=== PATIENT | male | born 1985 | race Hispanic/Latino ===

== ENCOUNTER 2019-05-19 18:34 | Emergency (ER) | payer OTHER ==
--- NOTE | 2019-05-19 18:51 | Event Note ---
ED Screening Note ED Screening Note: Pt presents for lightheaded and fever yesterday having pain and edema, erythema in the RLE (+) SOB no cough +nausea/vomiting no abd pain no diarrhea (+) CP feels like a "muscle cramp" PMHx DVT 2009, IVC filter in place 2009 sleep apnea, anxiety no cardiac hx normal stress test in Dec 2018 pt is currently on phentarmine non smoker occ drinker no drug use This initial assessment/diagnostic orders/clinical plan/treatment(s) is/are subject to change based on patients health status, clinical progression and re- assessment by fellow clinical providers in the ED. Further treatment and workup at subsequent clinical providers discretion. Patient/guardian urged not to elope from the ED as their condition may be serious if not clinically assessed and managed. Initial orders include: CP protocol
--- NOTE | 2019-05-19 19:26 | XRay Report ---
CHEST PA AND LATERAL VIEWS INDICATION: CP. COMPARISON: None. FINDINGS: Support devices: None. Heart: Within normal limits. Lungs/Pleura: There appears to be mild peribronchial cuffing could be seen in the setting of lower ai rways disease. No consolidation, pleural effusion, or pneumothorax. IMPRESSION: 1. Mild peribronchial cuffing which can be seen in the setting of lower airways disease. Signer Name: Darrion Burdick MD Signed: 05/19/2019 7:21 PM Workstation Name: [id number]
[2019-05-19 19:49] LABS: Basophils # (Auto) 0.1 K/mm3 (0.0-0.1); Basophils % (Auto) 0.5 % (0.0-1.8); Hemoglobin 15.2 gm/dl (11.8-15.2); Lymphocytes # (Auto) 1.1 K/mm3 (1.2-5.4); Mean Corpuscular HGB Conc 35 % (32-34); Mean Corpuscular Volume 85 fl (84-94); Monocytes # (Auto) 1.1 K/mm3 (0.0-0.8); Monocytes % (Auto) 8.2 % (0.0-7.3); Platelet Count 232 K/mm3 (140-440); Red Blood Count 5.17 M/mm3 (3.65-5.03); Red Cell Distribution Width 14.2 % (13.2-15.2)
[2019-05-19 19:56] LABS: INR 1.11 (0.87-1.13)
[2019-05-19 19:57] LABS: Partial Thromboplastin Time 26.7 Sec. (24.2-36.6)
[2019-05-19] MEDS ORDERED: ASPIRIN PO ONE (20:07)
[2019-05-19] MEDS ORDERED: SUBLIMAZE IV ONE (20:07)
[2019-05-19] MEDS ORDERED: ZOFRAN IV ONE (20:07)
[2019-05-19] MEDS ORDERED: CLEOCIN 900 MG/50 mL 900 MG/50 ML BAG IV ONE (20:10)
[2019-05-19 20:13] LABS: Alanine Aminotransferase 43 units/L (7-56); Albumin 4.4 g/dL (3.9-5); BUN/Creatinine Ratio 9; Blood Urea Nitrogen 10 mg/dL (9-20); Calcium 9.6 mg/dL (8.4-10.2); Hemolysis Index 3
--- NOTE | 2019-05-19 20:21 | Emergency Department Report ---
HPI - General Chief Complaint: Chest Pain Time Seen by Provider: 05/19/19 18:47 - HPI HPI: Room 3 The patient is a 33-year-old male presenting with a chief complaint of right lower extremities pain. The patient states he awakened today with a small patch of erythema surrounding the cut sustained to his right bhandari approximately one week ago. Patient states he does not recall how he cut his bhandari. The patient states the redness has spread quickly throughout the day. Patient states he felt dizzy and measured a fever at home of 101F. Patient admits to some left chest discomfort intermittently for one day. Pt admits to n/v and diaphoresis with his CP. Pt gives his leg pain a score of 6/10 ED Past Medical Hx - Past Medical History Previous Medical History?: Yes Hx Deep Vein Thrombosis: Yes Additional medical history: anxiety. sleep apnea. Ulcerative Colitis - Surgical History Past Surgical History?: Yes Additional Surgical History: ileostomy with full colectomy 2/2 Ulcerative Colitis. 3-4 hernia repairs. IVC filter - Family History Family history: no significant - Social History Smoking Status: Never Smoker Substance Use Type: None (denies illicit drug use), Alcohol (rarely) ED Review of Systems ROS: Stated complaint: FEVER/RT LEG SWELLING Other details as noted in HPI Constitutional: diaphoresis, fever Eyes: denies: eye pain ENT: denies: throat pain Respiratory: denies: shortness of breath Cardiovascular: chest pain Endocrine: no symptoms reported Gastrointestinal: denies: abdominal pain Genitourinary: denies: dysuria Musculoskeletal: denies: back pain Skin: rash Neurological: denies: headache Physical Exam - Physical Exam Vital Signs: Vital Signs 05/19/19 05/19/19 18:47 19:53 Temperature 98.1 F 98.7 F Pulse Rate 83 Respiratory 20 16 Rate Blood Pressure 137/91 O2 Sat by Pulse 97 99 Oximetry Physical Exam: GEN: WD, WN male sitting on stretcher in NAD HEENT: EOMI NECK: trachea midline PULM: No resp distress CV: rrr no m/r/g ABD: S/NT/ND SKIN: RLE with sig cellulitis encompassing ~ 70% of the anterior right bhandari NEURO: GCS 15 ED Course Vital Signs 05/19/19 05/19/19 18:47 19:53 Temperature 98.1 F 98.7 F Pulse Rate 83 Respiratory 20 16 Rate Blood Pressure 137/91 O2 Sat by Pulse 97 99 Oximetry - Consultations Consultation #1: 05/19/19 22:13 [facility] called- Case d/w Dr Torres. Will arrange xfer to [facility] ED Medical Decision Making - Lab Data Result diagrams: 05/19/19 19:13 05/19/19 19:13 Laboratory Tests 05/19/19 05/19/19 05/19/19 19:13 19:13 19:13 WBC 13.7 H RBC 5.17 H Hgb 15.2 Hct 44.0 MCV 85 MCH 29 MCHC 35 H RDW 14.2 Plt Count 232 Lymph % (Auto) 8.0 L Mcculloch % (Auto) 8.2 H Eos % (Auto) 0.0 Baso % (Auto) 0.5 Lymph # 1.1 L Mcculloch # 1.1 H Eos # 0.0 Baso # 0.1 Seg Neutrophils % 83.3 H Seg Neutrophils # 11.4 H PT 14.0 INR 1.11 APTT 26.7 D-Dimer 450.40 H Sodium 137 Potassium 4.2 Chloride 97.1 L Carbon Dioxide 25 Anion Gap 19 BUN 10 Creatinine 1.1 Estimated GFR > 60 BUN/Creatinine Ratio 9 Glucose 127 H Calcium 9.6 Total Bilirubin 0.90 AST 26 ALT 43 Alkaline Phosphatase 92 Troponin T < 0.010 NT-Pro-B Natriuret Pep Total Protein 7.8 Albumin 4.4 Albumin/Globulin Ratio 1.3 Lipase 24 05/19/19 19:13 WBC RBC Hgb Hct MCV MCH MCHC RDW Plt Count Lymph % (Auto) Mcculloch % (Auto) Eos % (Auto) Baso % (Auto) Lymph # Mcculloch # Eos # Baso # Seg Neutrophils % Seg Neutrophils # PT INR APTT D-Dimer Sodium Potassium Chloride Carbon Dioxide Anion Gap BUN Creatinine Estimated GFR BUN/Creatinine Ratio Glucose Calcium Total Bilirubin AST ALT Alkaline Phosphatase Troponin T NT-Pro-B Natriuret Pep 160.4 Total Protein Albumin Albumin/Globulin Ratio Lipase - EKG Data -: EKG Interpreted by Me EKG shows normal: sinus rhythm Rate: normal - EKG Data When compared to previous EKG there are: previous EKG unavailable Interpretation: normal EKG - Radiology Data Radiology results: report reviewed (CXR, RLE Doppler, VQ scan), image reviewed (CXR, RLE Doppler, VQ scan) interpreted by me: CXR- no focal infiltrates, no PTX [address] [address] XRay Report Signed Patient: MARY HOWARD MR#: [id number] : [birth year] Acct:[id number] Age/Sex: 33 / M ADM Date: 05/19/19 Loc: ED Attending Dr: Ordering Physician: CROW LESTER Date of Service: 05/19/19 Procedure(s): XR chest routine 2V Accession Number(s): [id number] cc: CROW LESTER Fluoro Time In Minutes: CHEST PA AND LATERAL VIEWS INDICATION: CP. COMPARISON: None. FINDINGS: Support devices: None. Heart: Within normal limits. Lungs/Pleura: There appears to be mild peribronchial cuffing could be seen in the setting of lower airways disease. No consolidation, pleural effusion, or pneumothorax. IMPRESSION: 1. Mild peribronchial cuffing which can be seen in the setting of lower airways disease. Signer Name: Darrion Burdick MD Signed: 05/19/2019 7:21 PM W orkstation Name: [id number] Transcribed By: SW Dictated By: Darrion Burdick MD Electronically Authenticated By: Darrion Burdick MD Signed Date/Time: 05/19/191920 DD/ 20 TD/TT: [address] [address] Vascular Lab Report Signed Patient: MARY HOWARD MR#: [id number] : 1985 Acct:[id number] Age/Sex: 33 / M ADM Date: 05/19/19 Loc: ED Attending Dr: Ordering Physician: CROW LESTER Date of Service: 05/19/19 Procedure(s): VL venous duplex LE RT Accession Number(s): [id number] cc: CROW LESTER VL venous duplex LE RT INDICATION / CLINICAL INFORMATION: RLE edema hx of DVT. COMPARISON: None available. FINDINGS: No evidence of deep vein thrombosis. Incidentally noted is an enlarged lymph node in the right groin. IMPRESSION: 1. Negative for deep vein thrombosis. Signer Name: José Rose MD Signed: 05/19/2019 8:58 PM Workstation Name: [id number] Transcribed By: TM Dictated By: José Rose MD Electronically Authenticated By: José Rose MD Signed Date/Time: 05/19/192057 DD/ 56 TD/TT: [facility] [address] [place] [address] Nuclear Medicine Report Signed Patient: MARY HOWARD MR#: [id number] : 1985 Acct:[id number] Age/Sex: 33 / M ADM Date: 05/19/19 Loc: ED Attending Dr: Ordering Physician: PINEDA BOWLING MD Date of Service: 05/19/19 Procedure(s): NM lung scan perf/vent Accession Number(s): [id number] cc: PINEDA BOWLING MD Nuclear medicine ventilation/perfusion lung scan Indication: Chest pain, elevated d-dimer Technique: 15.5 mCi of Xenon-133 were given by inhalation. 5.1 mCi of Tc 99m MAA were given by IV. Findings: Comparison with chest radiograph from earlier the same day. Wash-in, equilibrium, and wash-out phases of ventilation are normal. No air-trapping is seen. Perfusion images are unremarkable; specifically, no wedge-shaped, pleural-based, segmental defects are seen. Impression: Normal V/Q scan. Signer Name: Darrion Burdick MD Signed: 2018 10:00 PM Workstation Name: [id number] Transcribed By: SW Dictated By: Darrion Burdick MD Electronically Authenticated By: Darrion Burdick MD Signed Date/Time: 05/19/192199 DD/ 99 TD/TT: - Differential Diagnosis cellulitis, dvt, acs, pe, anxiety Critical care attestation.: If time is entered above; I have spent that time in minutes in the direct care of this critically ill patient, excluding procedure time. ED Disposition Clinical Impression: Cellulitis of right lower extremity, Leukocytosis Disposition: DC/TX-70 ANOTHER TYPE HLTHCARE Is pt being admited?: No Does the pt Need Aspirin: No Condition: Fair Referrals: PRIMARY CARE, [Primary Care Provider] - 3-5 Days Time of Disposition: 23:21 (awaiting transport)
--- NOTE | 2019-05-19 21:02 | Vascular Lab Report ---
VL venous duplex LE RT INDICATION / CLINICAL INFORMATION: RLE edema hx of DVT. COMPARISON: None available. FINDINGS: No evidence of deep vein thrombosis. Incidentally noted is an enlarged lymph node in the right groin. IMPRESSION: 1. Negative for deep vein thrombosis. Signer Name: José Rose MD Signed: 05/19/2019 8:58 PM Workstation Name: [id number]
[2019-05-19] MEDS ORDERED: REGLAN ONE (21:54)
[2019-05-19] MEDS ORDERED: REGLAN IV ONE (21:54)
--- NOTE | 2019-05-19 22:05 | Nuclear Medicine Report ---
Nuclear medicine ventilation/perfusion lung scan Indication: Chest pain, elevated d-dimer Technique: 15.5 mCi of Xenon-133 were given by inhalation. 5.1 mCi of Tc 99m MAA were given by IV. Findings: Comparison with chest radiograph from earlier the same day. Wash-in, equilibrium, and wash-out phases of ventilation are normal. No air-trapping is seen. Perfusion images are unremarkable; specifically, no wedge-shaped, pleural-based, segmental defects ar e seen. Impression: Normal V/Q scan. Signer Name: Darrion Burdick MD Signed: 05/19/2019 10:00 PM Workstation Name: [id number]
[2019-05-20 00:39] VITALS: BP 132/80
== END 2019-05-20 00:38 | disposition other institution (70) ==
LOC: ED 18:34
DX: L03.115 Cellulitis of right lower limb (principal); D72.829 Elevated white blood cell count, unspecified; R07.89 Other chest pain; R11.2 Nausea with vomiting, unspecified; R61 Generalized hyperhidrosis; F41.9 Anxiety disorder, unspecified; Z86.718 Personal history of other venous thrombosis and embolism; Z79.01 Long term (current) use of anticoagulants; Z98.890 Other specified postprocedural states; Z88.1 Allergy status to other antibiotic agents; Z91.09 Other allergy status, other than to drugs and biological substances; Z91.041 Radiographic dye allergy status
CPT/HCPCS: 36415; 71046; 78582; 80053; 83690; 83880; 84484; 85025; 85379; 85610; 85730; 87040; 93005; 93010; 93971; 96365; 96375; 99285; A9540; A9558; J2405; J2765; J3010

== ENCOUNTER 2019-06-11 23:20 | Emergency (ER) | payer OTHER ==
[2019-06-12 00:17] LABS: Basophils # (Auto) 0.1 K/mm3 (0.0-0.1); Basophils % (Auto) 0.7 % (0.0-1.8); Eosinophils # (Auto) 0.2 K/mm3 (0.0-0.4); Eosinophils % (Auto) 1.6 % (0.0-4.3); Hematocrit 42.7 % (35.5-45.6); Hemoglobin 14.6 gm/dl (11.8-15.2); Lymphocytes # (Auto) 1.9 K/mm3 (1.2-5.4); Lymphocytes % (Auto) 18.3 % (13.4-35.0); Mean Corpuscular HGB Conc 34 % (32-34); Mean Corpuscular Volume 86 fl (84-94); Monocytes # (Auto) 0.6 K/mm3 (0.0-0.8); Platelet Count 260 K/mm3 (140-440); Red Cell Distribution Width 14.6 % (13.2-15.2)
[2019-06-12 00:35] LABS: Alanine Aminotransferase 55 units/L (7-56); Albumin 4.2 g/dL (3.9-5); BUN/Creatinine Ratio 9; Blood Urea Nitrogen 9 mg/dL (9-20); Calcium 9.6 mg/dL (8.4-10.2); Hemolysis Index 9
[2019-06-12 01:37] LABS: Bilirubin,Urine NEG (Negative); Blood,Urine MOD (Negative); Color,Urine Yellow (Yellow); Mucus,Urine FEW /HPF; Protein,Urine <15 mg/dL mg/dL (Negative); Urobilinogen,Urine < 2.0 mg/dL (<2.0)
[2019-06-12] MEDS ORDERED: NACL 0.9% 1000 ML 1,000 ML IV ONE (02:44)
[2019-06-12] MEDS ORDERED: TORADOL IV ONE (02:44)
[2019-06-12] MEDS ORDERED: ZOFRAN IV ONE (02:44)
--- NOTE | 2019-06-12 02:59 | Emergency Department Report ---
ED Abdominal Pain HPI - General Chief Complaint: Abdominal Pain Stated Complaint: LEFT FLANK PAIN Time Seen by Provider: 06/12/19 02:20 Source: patient Mode of arrival: Ambulatory Limitations: No Limitations - History of Present Illness Initial Comments: Patient is a 33-year-old -[place] male who presents for left flank pain dysuria frequency and urgency 3 days history of renal stones to same kidney there is no fever or chills there is nausea no vomiting pain radiation from left flank to suprapubic no hematuria MD Complaint: flank pain Onset/Timin -: days(s) Location: L flank Radiation: suprapubic, L flank Migration to: L flank Severity: moderate Severity scale (0 -10): 6 Quality: aching, sharp Consistency: constant Improves With: nothing Worsens With: nothing Context: other (renal stones ) Associated Symptoms: nausea, dysuria. denies: vomiting, diarrhea, fever, chills, constipation, hematemesis, hematochezia, melena, hematuria, anorexia, syncope - Related Data Previous Rx's Medication Instructions Recorded Last Taken Type Famotidine [Pepcid] 20 mg PO BID #30 tablet 06/12/19 Unknown Rx Ketorolac [Toradol] 10 mg PO Q6H PRN #12 tablet 06/12/19 Unknown Rx Tamsulosin [Flomax] 0.4 mg PO QDAY #15 cap 06/12/19 Unknown Rx Allergies Allergy/AdvReac Type Severity Reaction Status Date / Time amoxicillin Allergy Hives Verified 05/19/19 18:36 cashew nut Allergy Hives Verified 05/19/19 18:36 iv dye Allergy Anaphylaxis Uncoded 05/19/19 18:36 ED Review of Systems ROS: Stated complaint: LEFT FLANK PAIN Other details as noted in HPI Constitutional: denies: chills, fever Eyes: denies: eye pain, eye discharge, vision change ENT: denies: ear pain, throat pain Respiratory: denies: cough, shortness of breath, wheezing Cardiovascular: denies: chest pain, palpitations Endocrine: no symptoms reported Gastrointestinal: abdominal pain, nausea. denies: vomiting, diarrhea, constipation, hematemesis, melena, hematochezia Genitourinary: urgency, dysuria, frequency. denies: hematuria, discharge, testicular pain, testicular mass Musculoskeletal: back pain. denies: joint swelling, arthralgia Skin: denies: rash, lesions Neurological: denies: headache, weakness, paresthesias Psychiatric: denies: anxiety, depression Hematological/Lymphatic: denies: easy bleeding, easy bruising ED Past Medical Hx - Past Medical History Previous Medical History?: Yes Hx Deep Vein Thrombosis: Yes Hx Kidney Stones: Yes Additional medical history: anxiety. sleep apnea. Ulcerative Colitis - Surgical History Past Surgical History?: Yes Additional Surgical History: ileostomy with full colectomy 2/2 Ulcerative Colitis. 3-4 hernia repairs. IVC filter - Social History Smoking Status: Never Smoker Substance Use Type: Alcohol - Medications Home Medications: Home Medications Medication Instructions Recorded Confirmed Last Taken Type Famotidine [Pepcid] 20 mg PO BID #30 tablet 06/12/19 Unknown Rx Ketorolac [Toradol] 10 mg PO Q6H PRN #12 tablet 06/12/19 Unknown Rx Tamsulosin [Flomax] 0.4 mg PO QDAY #15 cap 06/12/19 Unknown Rx ED Physical Exam - General Limitations: No Limitations General appearance: alert, in no apparent distress - Head Head exam: Present: atraumatic, normocephalic - Eye Eye exam: Present: normal appearance, PERRL, EOMI Pupils: Present: normal accommodation - ENT ENT exam: Present: mucous membranes moist - Neck Neck exam: Present: normal inspection, full ROM. Absent: tenderness, lymphadenopathy - Respiratory Respiratory exam: Present: normal lung sounds bilaterally. Absent: respiratory distress, wheezes, stridor, chest wall tenderness - Cardiovascular Cardiovascular Exam: Present: regular rate, normal rhythm, normal heart sounds. Absent: systolic murmur, diastolic murmur, rubs, gallop - GI/Abdominal GI/Abdominal exam: Present: soft, tenderness (left cva tenderness to palpation), normal bowel sounds. Absent: distended, guarding, rebound, rigid, bruit, hernia - Rectal Rectal exam: Present: deferred - Extremities Exam Extremities exam: Present: normal inspection, full ROM, normal capillary refill. Absent: pedal edema, joint swelling, calf tenderness - Back Exam Back exam: Present: normal inspection, full ROM, tenderness, CVA tenderness (L). Absent: CVA tenderness (R), muscle spasm, paraspinal tenderness, vertebral tenderness, rash noted - Neurological Exam Neurological exam: Present: alert, oriented X3, CN II-XII intact, normal gait, reflexes normal. Absent: motor sensory deficit - Psychiatric Psychiatric exam: Present: normal affect, normal mood - Skin Skin exam: Present: warm, dry, intact, normal color. Absent: rash ED Course Vital Signs 06/11/19 06/12/19 23:26 04:05 Temperature 97.3 F L Pulse Rate 73 Respiratory 20 16 Rate Blood Pressure 165/100 O2 Sat by Pulse 95 Oximetry ED Medical Decision Making - Lab Data Result diagrams: 06/12/19 00:06 06/12/19 00:06 - Radiology Data Radiology results: report reviewed, image reviewed Ordering Physician: AALIYAH PRADO NP Date of Service: 06/12/19 Procedure(s): CT abdomen pelvis wo con Accession Number(s): [id number] cc: AALIYAH PRADO NP CT ABDOMEN AND PELVIS WITHOUT CONTRAST HISTORY: MAIN: LEFT SIDE PAIN STARTED YESTERDAY MORNING. COMPARISON: None. TECHNIQUE: CT images of the abdomen and pelvis were obtained without administration of intravenous contrast. All CT scans at this location are performed using CT dose reduction for ALARA by means of automated exposure control. FINDINGS: Lungs/bones: The lung bases are clear. There is no acute osseous abnormality. Abdomen/pelvis: There is hepatic steatosis. The gallbladder, spleen, pancreas, adrenals, right kidney, and proximal GI tract appear unremarkable. There is a 8 mm stone in the left renal pelvis with mild pelvocaliectasis. Additional nonobstructive calyceal stones are seen in the left kidney measuring up to 6 mm in the lower pole. Urinary bladder and prostate appear unremarkable. No pelvic free fluid. Colonic postoperative changes are present with colectomy and distal anastomosis and pouch. No bowel obstruction identified. Surgical mesh is seen over the ventral abdominal wall and there is also an infrarenal IVC filter. IMPRESSION: 1. 8 mm stone in the left renal pelvis with mild pelvocaliectasis. 2. Additional incidental findings as above. Signer Name: David Dominguez MD Signed: 06/12/2019 3:36 AM Workstation Name: [id number] Transcribed By: FREDRICK Dictated By: David Dominguez MD Electronically Authenticated By: David Dominguez MD Signed Date/Time: 06/12/19335 DD/ 3 TD/TT: - Medical Decision Making CT Renal stones left 8mm and 6mm, no obstruction no hydronophrosis , noted fatty liver, plan dc to home with rx for po tramadol, flomax, there is no elevated white count, urine no leuk no nitrates no bacteria pt will follow up with urology and pcp in 2-3 days return to emergency if symptoms worsen, pt dc'd to home in stable condition at this time. Critical care attestation.: If time is entered above; I have spent that time in minutes in the direct care of this critically ill patient, excluding procedure time. ED Disposition Clinical Impression: Kidney stones, Fatty liver Disposition: DC-01 TO HOME OR SELFCARE Is pt being admited?: No Does the pt Need Aspirin: No Condition: Stable Instructions: Kidney Stones (ED), Non-Alcoholic Fatty Liver Disease (ED) Prescriptions: Tamsulosin [Flomax] 0.4 mg PO QDAY #15 cap Famotidine [Pepcid] 20 mg PO BID #30 tablet Ketorolac [Toradol] 10 mg PO Q6H PRN #12 tablet PRN Reason: Pain Referrals: MARILUZ HERNANDEZ MD [Primary Care Provider] - 3-5 Days MARY LEVY MD [Staff Physician] - 3-5 Days Forms: Work/School Release Form(ED) Time of Disposition: 04:52
--- NOTE | 2019-06-12 03:40 | Cat Scan Report ---
CT ABDOMEN AND PELVIS WITHOUT CONTRAST HISTORY: MAIN: LEFT SIDE PAIN STARTED YESTERDAY MORNING. COMPARISON: None. TECHNIQUE: CT images of the abdomen and pelvis were obtained without administration of intravenous co ntrast. All CT scans at this location are performed using CT dose reduction for ALARA by means of au tomated exposure control. FINDINGS: Lungs/bones: The lung bases are clear. There is no acute osseous abnormality. Abdomen/pelvis: There is hepatic steatosis. The gallbladder, spleen, pancreas, adrenals, right kidne y, and proximal GI tract appear unremarkable. There is a 8 mm stone in the left renal pelvis with mild pelvocaliectasis. Additional nonobstructive calyceal stones are seen in the left kidney measuring up to 6 mm in the lower pole. Urinary bladder and prostate appear unremarkable. No pelvic free fluid. Colonic postoperative changes are present with colectomy and distal anastomosis and pouch. No bowel obstruction identified. Surgic al mesh is seen over the ventral abdominal wall and there is also an infrarenal IVC filter. IMPRESSION: 1. 8 mm stone in the left renal pelvis with mild pelvocaliectasis. 2. Additional incidental findings as above. Signer Name: David Dominguez MD Signed: 06/12/2019 3:36 AM Workstation Name: [id number]
[2019-06-12 06:17] VITALS: BP 140/87
== END 2019-06-12 06:18 | disposition home or self-care (01) ==
LOC: ED 23:20
DX: N20.0 Calculus of kidney (principal); K76.0 Fatty (change of) liver, not elsewhere classified; F41.9 Anxiety disorder, unspecified; G47.30 Sleep apnea, unspecified; Z86.718 Personal history of other venous thrombosis and embolism; Z87.442 Personal history of urinary calculi; Z98.890 Other specified postprocedural states; Z79.899 Other long term (current) drug therapy; Z88.1 Allergy status to other antibiotic agents; Z91.018 Allergy to other foods; Z91.041 Radiographic dye allergy status
CPT/HCPCS: 36415; 74176; 80053; 81001; 83690; 85025; 96374; 96375; 99284; J1885; J2405; J7030